=== PATIENT | female | born 1970 | race Caucasian/White ===

== ENCOUNTER → 2018-01-12 15:18 | Outpatient (CLI) | payer OTHER, SELFPAY ==
--- NOTE | 2018-01-12 | DI.MG.S_ITS ---
BILATERAL DIGITAL SCREENING MAMMOGRAM 3D/2D WITH CAD: 01/12/2018 CLINICAL: Routine screening. Family history of breast cancer. Comparison is made to exams dated: 02/18/2016 mammogram, 12/17/2013 mammogram - [facility], and 04/06/2011 mammogram - [facility]. The tissue of both breasts is heterogeneously dense. This may lower the sensitivity of mammography. Current study was also evaluated with a Computer Aided Detection (CAD) system. There is irregular equal density architectural distortion with an indistinct margin in the left breast at 11 o'clock anterior depth. No other significant masses, calcifications, or other findings are seen in either breast. IMPRESSION: INCOMPLETE: NEEDS ADDITIONAL IMAGING EVALUATION The irregular equal density architectural distortion in the left breast is indeterminate. Mediolateral and spot compression views as well as additional views with possible ultrasound are recommended. This exam was interpreted at Station ID: [id number]. NOTE: For mammograms, a report in lay terms will be sent to the patient. Approximately 15% of breast malignancies will not be visualized mammographically. In the management of a palpable breast mass, a negative mammogram must not discourage biopsy of a clinically suspicious lesion. Electronically Signed By: Jose riddle/alina:01/12/2018 16:39:21 letter sent: Additional Imaging Needed ACR BI-RADS Category 0: Incomplete [id number]
== END ==
PROVIDERS: PCP Nurse Practitioner Family; Visit Provider Nurse Practitioner Family
DX: Z12.31 Encounter for screening mammogram for malignant neoplasm of breast (principal); Z80.3 Family history of malignant neoplasm of breast
CPT/HCPCS: 77063; 77067

== ENCOUNTER → 2018-01-25 14:36 | Outpatient (CLI) | payer OTHER, SELFPAY ==
--- NOTE | 2018-01-25 | DI.US.S_ITS ---
ULTRASOUND OF LEFT BREAST: 01/25/2018 CLINICAL: Patient returns for additional imaging over a suspected mass in the left breast. Comparison is made to exams dated: 01/25/2018 mammogram, 01/12/2018 mammogram, and 02/18/2016 mammogram - [facility]. Color flow ultrasound of the left breast was performed. Ibarra scale images of the real-time examination were reviewed. There is a 0.6 cm x 0.4 cm x 0.4 cm irregular mass with an angular margin in the left breast at 10 o'clock anterior depth 3 cm from the nipple. This irregular mass is hypoechoic. IMPRESSION: SUSPICIOUS OF MALIGNANCY - FOLLOW-UP RECOMMENDED The 0.6 cm x 0.4 cm x 0.4 cm irregular mass in the left breast is suspicious of malignancy. An ultrasound guided biopsy is recommended. It is unclear if this finding correlates with the distortion seen mammographically. Recommend post biopsy mammography with tomosynthesis. If finding is discordant a breast MRI or biopsy under tomographic guidance will be needed. Findings and recommendations discussed with the patient by Dr. Michel of the department of radiology at the time of evaluation. This exam was interpreted at Station ID: [id number]. Electronically Signed By: Wiliam Parkinson M.D. cj/:01/25/2018 18:01:51 letter sent: Biopsy Required Ultrasound BI-RADS: 4 Suspicious abnormality
--- NOTE | 2018-01-25 | DI.MG.S_ITS ---
UNILATERAL LEFT DIGITAL DIAGNOSTIC MAMMOGRAM 3D/2D WITH ADDITIONAL VIEWS: 01/25/2018 CLINICAL: Additional evaluation requested from prior study. Family history of breast cancer. Comparison is made to exams dated: 01/12/2018 mammogram, 02/18/2016 mammogram, and 12/17/2013 mammogram - [facility]. The tissue of the left breast is heterogeneously dense. This may lower the sensitivity of mammography. There is 7 mm architectural distortion in the left breast at 10 o'clock anterior depth. No other significant masses or calcifications are seen in the breast. IMPRESSION: INCOMPLETE: NEEDS ADDITIONAL IMAGING EVALUATION The 7 mm architectural distortion in the left breast is indeterminate. An ultrasound is recommended. This exam was interpreted at Station ID: [id number]. NOTE: For mammograms, a report in lay terms will be sent to the patient. Approximately 15% of breast malignancies will not be visualized mammographically. In the management of a palpable breast mass, a negative mammogram must not discourage biopsy of a clinically suspicious lesion. Electronically Signed By: Wiliam shaffer/alina:01/25/2018 17:59:16 ACR BI-RADS Category 0: Incomplete [id number]
== END ==
PROVIDERS: PCP Nurse Practitioner Family; Visit Provider Nurse Practitioner Family
DX: R92.8 Other abnormal and inconclusive findings on diagnostic imaging of breast (principal)
CPT/HCPCS: 76642; 77065; G0279

== ENCOUNTER → 2018-02-13 13:36 | Outpatient (CLI) | payer OTHER, SELFPAY ==
--- NOTE | 2018-02-13 | DI.MG.S_ITS ---
UNILATERAL LEFT DIGITAL DIAGNOSTIC MAMMOGRAM POST-NEEDLE BIOPSY: 02/13/2018 CLINICAL: Left breast mass. Post clip placement. Comparison is made to exams dated: 01/25/2018 ultrasound, 01/12/2018 mammogram, 02/18/2016 mammogram, and 12/17/2013 mammogram - [facility]. The tissue of the left breast is heterogeneously dense. This may lower the sensitivity of mammography. There is a marker clip in the appropriate position in the left breast inner aspect anterior depth. This marker clip placement is at biopsy site. This clip is approximately 1 cm inferior and medial to the mass with architectual distortion seen on comparison diagnostic mammography. IMPRESSION: POST PROCEDURE MAMMOGRAM FOR MARKER PLACEMENT Marker clip placement in the left breast inner aspect anterior depth. The biopsy clip is at the biopsy site but offset by 1 cm from the mass with architectual distortion seen on comparison diagnostic mammogram of 01/25/2018. As such, the ultrasound finding may be discordant from the mammogram finding at diagnostic imaging. Further determination of diagnostic work-up is pending biopsy results, and may include breast MRI. These results and recommendations were discussed with the patient immediately following the biopsy and post-clip images. This exam was interpreted at Station ID: [id number]. NOTE: For mammograms, a report in lay terms will be sent to the patient. Approximately 15% of breast malignancies will not be visualized mammographically. In the management of a palpable breast mass, a negative mammogram must not discourage biopsy of a clinically suspicious lesion. Electronically Signed By: Arnie Trujillo M.D. ecl/:02/13/2018 16:44:48 ACR BI-RADS Category Post-procedure mammogram for marker placement
--- NOTE | 2018-02-13 | PATH_ITS ---
[facility] Accession Number: [id number] . 01 Material submitted: . LEFT BREAST MASS . 01 Clinical history: . A: 9 O'CLOCK 3CM FROM NIPPLE . 02 Diagnosis: Breast Mass at 9 o'clock, 3 cm from Nipple, Left, Vacuum-Assisted Core Biopsy: Benign fibroepithelial tissue. Consistent with fibroadenoma with myxoid stromal change, in the appropriate clinical and imaging setting. . MRV/02/15/2018 . 02 Comment: There is no histologic evidence of stromal overgrowth, increased stromal mitoses, or increased stromal cellularity. . Slides were reviewed by Dr. Eris Urbano, who concurs with this interpretation. . 02 Electronically signed: . Mónica Puga MD, Pathologist NPI- [id number] . 01 Gross description: . Received in formalin, labeled breast perc w vac device, are multiple fragments of celis-yellow and delgadillo-white fibrous adipose tissue (2.5 x 2.1 x 0.2 cm in aggregate). Entirely submitted in cassette A1. Note: Approximate total fixation time in formalin: 33 hours 30 minutes calculated using a collection date of 02/13/2018 with a time in fixative of 1450. ([id number] 1466) /MRV . 02 Pathologist provided ICD-10: N63.20 . 02 CPT . 993187 Performed at: 01 [facility] [address] [facility], [place], [place] [id number] MD Jose Márquez MD Phone: [phone] Performed at: 02 [facility] [address] [place], [place] [id number] MD Unruly Romero MD Phone: [phone]
--- NOTE | 2018-02-13 | DI.US.S_ITS ---
ULTRASOUND GUIDED BIOPSY LEFT BREAST USING VACUUM DEVICE WITH MARKING DEVICE INSERTED AND POST DIGITAL MAMMOGRAPHIC IMAGIN02/13/2018 CLINICAL: Left breast mass. PATIENT CONSENT: Risks (minor bleeding, infection, vasovagal reaction and repeat procedure), benefits and alternatives were explained to the patient and written informed consent was obtained. Correlation is made to exams dated: 01/25/2018 ultrasound, 01/25/2018 mammogram, and 01/12/2018 mammogram - [facility]. An ultrasound guided biopsy using real-time ultrasound was performed for the concerning mass located in the medial left breast described on comparison ultrasound exam of 01/25/2018. This was described on the previous mammography and ultrasound reports. The skin was prepped in the usual manner. 5 mL of 1% lidocaine and 5 mL of 1% lidocaine with epinephrine was used for local anesthesia. A skin jennifer was made in the breast. The abnormality was approached from the lateral aspect. A 13 gauge biopsy needle was placed adjacent to the abnormality through an introducer device under ultrasound guidance. Once the needle was documented to be in the correct location, five specimens were obtained using the Mammotome biopsy system. A clip was inserted into the biopsy cavity. A skin adhesive was applied to the access site. Post procedure digital mammographic imaging was obtained and demonstrates the biopsy clip at the biopsy site but offset from the mass with architectual distortion seen on comparison diagnostic mammogram of 01/25/2018. The specimens were sent to the laboratory for pathological analysis. IMPRESSION: ULTRASOUND GUIDED BIOPSY BENIGN Ultrasound guided biopsy of the mass in the left breast at 8 o'clock anterior depth 3 cm from the nipple was successful with no apparent post procedure complications. However, post procedure digital mammographic imaging was obtained and demonstrates the biopsy clip at the biopsy site but offset from the mass with architectual distortion seen on comparison diagnostic mammogram of 01/25/2018. As such, the ultrasound finding may be discordant from the mammogram finding at diagnostic imaging. Further determination of diagnostic work-up is pending biopsy results, and may include breast MRI. These results and recommendations were discussed with the patient immediately following the biopsy and post-clip images. Pathology results demonstrate a fibroadenoma which is discordant with the imaging findings. Recommend surgical excision or bilateral breast MRI with and without contrast. Recommendations discussed via telephone with Dr. Parish ([phone]) at 13:30 on 02/20/2018. This exam was interpreted at Station ID: [id number]. Arnie Parkinson M.D. ecl,cj/:02/20/2018 14:16:58
--- NOTE | 2018-04-03 15:28 | PM.HP.1 ---
History of Present Illness Date Patient Seen: 04/03/18 Time Patient Seen: 15:28 Chief complaint: LEFT BREAST MASS Narrative: Jana 48-year-old lady who presents for screening colonoscopy. She denies any problems or symptoms related to the function of her GI tract. She requires a colonoscopy as part of a health maintenance program. Patient History Medical History Breast mass, left (Acute) PCOS (polycystic ovarian syndrome) (Chronic) Surgical History H/O left breast biopsy (Acute) History of dermoid cyst excision (Resolved) Hx of removal of ovary (Resolved) Family & Social History Family History: Reviewed 04/03/18 by Natalia Head MD Meds Home Medications Medication Instructions Recorded Confirmed Type bupropion HBr 150 mg PO DAILY 03/05/18 03/21/18 History buspirone 150 mg PO DAILY 03/05/18 03/21/18 History metformin 850 mg PO DAILY 03/05/18 03/21/18 History spironolactone 100 mg PO DAILY 03/05/18 03/21/18 History ondansetron 4 mg PO QID PRN #20 tab MDD 4 03/21/18 Rx oxycodone-acetaminophen [Endocet] 1 tab PO Q4-6H PRN #20 tab MDD 6 03/21/18 Rx Allergies Allergy/AdvReac Type Severity Reaction Status Date / Time morphine [MORPHINE] Allergy Intermediate itching Verified 03/21/18 07:46 Review of Systems Review of Systems All systems reviewed & are unremarkable except as noted in HPI and below Exam Vital Signs (past 8 hours): Very pleasant well-nourished well-developed lady in no distress Narrative Exam Narrative: HEENT: Normocephalic and atraumatic, pupils equal round reactive to light accommodation with anicteric sclera Lungs: Clear to auscultation bilaterally Heart: Regular rate and rhythm without murmur rub or gallop Abdomen: Soft, nontender, active bowel sounds Extremities: Warm and well perfused Assessment & Plan Plan: Assessment/Plan Narrative: Very pleasant and generally healthy 48-year-old lady who presents for her 1st screening colonoscopy. We discussed risks and benefits of procedure the patient elected to complete it today
--- NOTE | 2018-04-03 16:02 | PM.OP.1 ---
Operative Date/Time/Diagnoses Date of procedure: 04/03/18 Time of procedure: 16:02 Pre-op diagnosis: Screening Post-op diagnosis: same Procedure & Clinicians Procedure: Colonoscopy to the cecum Same procedure as scheduled: Yes Indications: No prior colonoscopy Surgeon: Natalia Head Click Yes if Unassisted: Yes Anesthesia Type: Sedation (Versed 9 mg; fentanyl 250 mcg) Operative Notes Findings: 1. Moderately poor prep 2. No polyps or mass lesions 3. No AV malformations 4. Mild diverticulosis 5. Mild colon tortuosity 6. Grade 1-2 internal hemorrhoids Blood products transfused: none Procedure in detail: After obtaining informed consent, the patient was brought to the GI suite and placed in the left lateral decubitus position on the examination table. After placement of appropriate monitors, the patient was given incremental doses of Versed and Fentanyl until an appropriate level of sedation was achieved. A time out was held per SCOAP protocol. A digital rectal examination was performed and did not reveal any masses or obstructing lesions. The colonoscope was gently passed into the patient's anus and the entire colon navigated to the level of the cecum with moderate difficulty due to colon tortuosity. Once in the cecum, the scope was withdrawn being sure to go before and beyond all mucosal folds and prominences and get an excellent examination. The findings are noted above. At the level of the rectal vault, the scope was retroflexed and the internal anal canal was examined. The scope was straightened and air aspirated from the colon. The instrument was removed from the patient's body and the procedure was concluded. The patient was allowed to awaken from sedation without difficulty and taken to the post-anesthesia care unit in good condition. Total sedation time 35 min Total withdrawal time 16 min and 20 sec Complications: none Condition: stable Disposition: PACU Plan for aftercare: 1. Discharge to home 2. Plan for next colonoscopy in 10 years or as clinically indicated
== END ==
PROVIDERS: PCP Nurse Practitioner Family; Visit Provider Nurse Practitioner Family
DX: N63.20 Unspecified lump in the left breast, unspecified quadrant (principal)
CPT/HCPCS: 19083; 77065

== ENCOUNTER 2018-03-21 07:00 | Day surgery (SDC) | payer OTHER, SELFPAY ==
[2018-03-07 16:53] VITALS: BMI 27.6
--- NOTE | 2018-03-21 | DI.MG.S_ITS ---
SPECIMEN: 03/21/2018 CLINICAL: Breast specimen left. Correlation is made to exams dated: 03/21/2018 localization and 02/13/2018 ultrasound [facility]. IMPRESSION: SPECIMEN Surgical specimen contains the localization wire and targeted distortion. Findings relayed to Dr. Head in the surgical suite at the time of specimen radiography via telephone ([phone]). This exam was interpreted at Station ID: [id number]. Wiliam Parkinson M.D. cj/:03/21/2018 11:20:54
--- NOTE | 2018-03-21 | DI.MG.S_ITS ---
MAMMOGRAPHY GUIDED WIRE LOCALIZATION LEFT BREAST WITH POST MAMMOGRAPHIC IMAGIN03/21/2018 CLINICAL: Left breast wire localization. Correlation is made to exams dated: 02/13/2018 mammogram, 01/25/2018 mammogram, and 01/12/2018 mammogram - [facility]. A wire localization using mammography guidance was performed for the area of architectural distortion located in the left breast at 11 o'clock anterior depth. The skin was prepped in the usual manner. Local anesthetic was administered to the access site. The localization was approached from the craniocaudal aspect. A wire was inserted into the targeted area under mammography guidance. Post placement mammographic imaging was obtained. IMPRESSION: WIRE LOCALIZATION Wire localization for the area of architectural distortion in the left breast at 11 o'clock anterior depth was successful. This exam was interpreted at Station ID: [id number]. Wiliam shaffer/alina:03/21/2018 09:10:13
--- NOTE | 2018-03-21 | PATH_ITS ---
[facility] Accession Number: [id number] . 01 Material submitted: . LEFT BREAST TISSUE . 02 Diagnosis: . Left Breast Tissue: Invasive carcinoma of the breast (see breast cancer summary below). . CAP CANCER CASE SUMMARY Invasive carcinoma of the breast: . Procedure: Local excision. Specimen Laterality: Left. . Tumor site: Not specified. Tumor size: Largest are of invasion measured at 0.8 cm (see microscopic description). Histologic type: Invasive ductal carcinoma. Histologic grade: Lor histologic score 6 of 9. Glandular/Tubular differentiation: Score 2 of 3. Nuclear Pleomorphism: Score 3 of 3. Mitotic Rate: Score 1 of 3. Overall Grade: Grade 2 of 3 (score 6 of 9). Tumor focality: Multiple areas of invasive malignancy (see microscopic description. Ductal carcinoma in situ: Present, and positive for extensive intraductal carcinoma. Size (Extent) of DCIS: Measured at 1.2 cm. Architectural patterns: Solid and papillary. Nuclear grade: Grade High. Necrosis: Positive in DCIS. . Margins Invasive carcinoma: Anterior: 0.3 cm. Posterior: 1.5 cm. Superior: 4.9 cm. Inferior: 2.7 cm. Medial: 0.2 cm. Lateral: 2.3 cm. Ductal carcinoma in situ: Anterior: Focally positive. Posterior: 1.5 cm. Superior: 4.9 cm. Inferior: 2.7 cm. Medial: 0.2 cm. Lateral: 2.3 cm. . Regional lymph nodes: None submitted. . Lymphatic/vasular invasion: Negative . Hormone Receptor Studies: Not performed on this specimen (presumably performed on previous biopsy). . Pathologic staging: AJCC, 8th ed. Primary tumor: pT1b (see microscopic description). Regional lymph nodes: pNX MRV/03/27/2018 . 02 Electronically signed: . Ino Urbano MD, Pathologist NPI- [id number] . 01 Gross description: . Received in formalin, labeled left breast tissue, is a piece of breast tissue (2.6 cm AP, 7.9 cm SI, 7.0 cm ML) with no overlying skin. The specimen is oriented with two black sutures (long-lateral, short-anterior) and the localization wire is superior. The specimen is serially sectioned SI into 21 slices with the superior and inferior resection margins as slices #1 and #21, respectively. The localization wire ends within slice #14. The breast tissue is fibrofatty and contains a cavity involving slices #2-#17 (approximately 6.0 x 4.5 x 2.2 cm). 0.5 cm from the cavity within slice #14 is a delgadillo-white solid firm irregular mass (1.0 x 0.9 x 0.3 cm). The mass is 0.3 cm from the anterior, 1.5 cm from the posterior, 4.9 cm from the superior, 2.7 cm from the inferior, 2.2 cm from the medial, and 2.3 cm from the lateral resection margins. No other nodules, masses or lesions are identified. Ink code: purple-anterior; yellow-posterior; black-superior; orange-inferior; green-medial; blue-lateral. Section code: (A1) superior resection margin, perpendicularly sectioned, claim service representative; (A2) slice #3, claim service representative; (A3) slice #4, claim service representative; (A4) slice #6, claim service representative; (A5) slice #7, claim service representative; (A6) slice #11, claim service representative; (A7) slice #12, claim service representative; (A8) slice #13, tissue adjacent to mass, claim service representative; (A9-A12) slice #14, entirely submitted; (A13-A14) slice #15, tissue adjacent to mass, claim service representative; (A15) slice #16, entirely submitted; (A16) inferior resection margin, perpendicularly sectioned, claim service representative. Note: Approximate total fixation time in formalin - 59 hours 30 minutes, calculated using a collection date of 03/21/2018 with no collection time given. (JM:cmc10 8870) /MRV . 02 Microscopic: . Sections are of breast. There is an infiltrating carcinoma present which consists of an admixture of extensive ductal carcinoma in situ associated with multiple areas of invasive malignancy. On histologic examination, there is more tumor present present within this biopsy than was grossly appreciated. Grossly, the tumor appeared to be present in slice 14; however, it actually is present in the sections from slices 6-15, which equates to an area up to 2.2 cm in maximum dimension. For the purpose of pathologic staging, however, one measures the largest single area of invasion as seen on the slide and in this case would be 0.8 cm. The largest single area of duct carcinoma in situ as measured on the slide is 1.2 cm. The nuclear grade of the invasive ductal carcinoma is high with a score of 3 out of 3. Mitotic rate is less than 3 per millimeter squared and with a score of 1 of 3. Tubular differentiation is clearly present, but is greater than 10% of the tumor but less than 75%, which gives a score of 2 of 3. This is an overall tumor grade score of 6 of 9, which equates to a [place] tumor grade 2 of 3. The duct carcinoma in situ is of high nuclear grade and has a papillary and solid pattern with multiple areas of necrosis. . In evaluating the margins of excision, there is a focus of duct carcinoma in situ which touches the inked anterior margin. All of the other margins are free of tumor; however, invasive malignancy is found to be 0.2 cm from the inked medial margin. There is no evidence of lymphatic channel invasion or vascular invasion. . 02 Pathologist provided ICD-10: C50.912 . 02 CPT . 437101 Performed at: 01 [facility] [address] [place] [address], [place], [place] [id number] MD Jose Márquez MD Phone: [phone] Performed at: 02 [facility] [address] [place], [place] [id number] MD Unruly Romero MD Phone: [phone]
[2018-03-21 07:40] VITALS: BP 108/57; PULSE 61; RESP 14; TEMP 36.6; O2SAT 96; BMI 27.6
--- NOTE | 2018-03-21 09:05 | SUR.PREOP ---
pt back to opd from radiology, spouse at side , no' co's at 0900
[2018-03-21] MEDS: LACTATED RINGERS 1,000 ML 42 ML IV (09:08)
--- NOTE | 2018-03-21 10:09 | SUR.OPER ---
Supine on padded OR bed, head on pillow, arms secured on padded arm boards at <90 degrees abduction, legs uncrossed, safety belt at thigh, tape over blanket over lower legs.
[2018-03-21] MEDS: CEFAZOLIN 2 GM/100 ML FROZ.PIGGY IV (10:33)
[2018-03-21] MEDS: LIDOCAINE 1% W/EPI INJ 20 ML INJ (10:44)
[2018-03-21] MEDS: BUPIVACAINE 0.5% (PF) VIAL 30 ML INJ (10:46)
--- NOTE | 2018-03-21 11:20 | PM.OP.1 ---
Operative Date/Time/Diagnoses Date of procedure: 03/21/18 Time of procedure: 11:20 Pre-op diagnosis: Left breast mass Post-op diagnosis: same Procedure & Clinicians Procedure: Left Breast Mass Same procedure as scheduled: Yes Indications: Suspicious left breast mass in the setting of a strong family history of breast cancer Surgeon: Natalia Head Click Yes if Unassisted: Yes Anesthesia Type: General (Dr. Craig) and Local Operative Notes Findings: Target mass and wire contained within the specimen Closure Type: primary Specimen(s): other (Specimen in formalin to pathology following x-ray) Implants & Drains: Cavity marked with hemoclips Procedure in detail: After obtaining informed consent, the patient was brought to the operating room and placed in the supine position on the operating table. Following successful induction of general endotracheal anesthesia, appropriate padding of all bony prominences, and placement of appropriate monitors, the left breast and axilla were prepped and draped in a standard surgical fashion. A timeout was held per SCOAP protocol. We continued with lumpectomy on the left side. A curvilinear incision was created on the left side at the superior edge of the nipple-areolar complex.. Using traction and counter-traction, the mass and localizing wire carefully dissected free from the overlying skin, underlying muscle, and surrounding breast tissue. The mass was delivered into the field and marked appropriately. It was sent for specimen x-ray. The wound was checked for hemostasis and irrigated with water. The cavity was marked with hemoclips. The radiologist called back into the room noting that the specimen x-ray contained the wire and mass. The wound was checked once again for hemostasis. It was irrigated copiously with warm water and aspirated free of all fluid. A small piece of Surgicel was placed in the breast cavity up into the chest wall. The wound was checked once again for hemostasis and then closed in 2 layers with Vicryl Monocryl suture. Dermabond was applied to the skin incisions. Fluffs and a breast binder were applied. The patient tolerated the procedure very well. She was allowed awaken from anesthesia and taken to the post-anesthesia care unit in good condition. Complications: none Condition: stable Disposition: PACU Plan for aftercare: 1. Discharge to home 2. Follow up with me in 2 weeks
[2018-03-21 11:25] VITALS: BP 112/69; PULSE 79; RESP 14; TEMP 36.5; O2SAT 96
[2018-03-21 11:30] VITALS: BP 105/65; PULSE 77; RESP 15; TEMP 36.5; O2SAT 93
[2018-03-21 11:40] VITALS: BP 111/63; PULSE 74; RESP 22; TEMP 36.1; O2SAT 98
[2018-03-21 11:50] VITALS: BP 97/56; PULSE 80; RESP 14; TEMP 36.1; O2SAT 97
[2018-03-21] MEDS: OXYCODONE/ACETAMINOPHEN 5/325 TABLET 1 TAB PO (11:55)
[2018-03-21 12:23] VITALS: BP 108/57; PULSE 61; RESP 14; TEMP 36.6; O2SAT 96
== END 2018-03-21 12:30 | disposition home or self-care (01) ==
PROVIDERS: PCP Nurse Practitioner Family; Visit Provider Surgery
PROC: (CPT 19301; principal; 2018-03-21 13:00)
DX: C50.912 Malignant neoplasm of unspecified site of left female breast (principal); Z80.3 Family history of malignant neoplasm of breast; F41.9 Anxiety disorder, unspecified
CPT/HCPCS: 19301; 19281; 76098; G0279; J0690; J1100; J2250; J2405; J2704; J2765; J3010

== ENCOUNTER 2018-04-18 09:47 | Day surgery (SDC) | payer OTHER, SELFPAY ==
[2018-04-11 14:39] VITALS: BMI 27.6
[2018-04-18] VITALS (23 sets, daily range): BP systolic 103–135; BP diastolic 45–96; PULSE 63–89; RESP 10–17; TEMP 35.9–36.9; O2SAT 87–100; BMI 27.6
--- NOTE | 2018-04-18 | PATH_ITS ---
[facility] Accession Number: [id number] . 01 Material submitted: . PART A: RIGHT BREAST PART B: LEFT AXILLARY SENTINEL NODE PART C: LEFT BREAST . 02 Diagnosis: A. Right Breast, Mastectomy: Benign breast tissue with scattered fibrocystic changes including microcysts, apocrine metaplasia and fibrosis. No evidence of atypical hyperplasia, in situ or invasive carcinoma. . B. Left Axillary Odonnell Node, Excision: One sentinel lymph node negative for metastatic carcinoma. Please see comment. . C. Left Breast, Mastectomy: Reactive changes consistent with prior excision. Fibrocystic changes. No residual in situ or invasive carcinoma. [facility]/04/24/2018 . 02 Comment: B. The minimum pathologic stage classification for regional lymph nodes is pN0(sn). . 02 Electronically signed: . Kimmy Braxton MD, Pathologist NPI- [id number] . 01 Gross description: . (A) Received in formalin, labeled right breast-sutures long lateral, short superior, is a right breast (4.8 cm AP, 21.7 cm SI, 20.8 cm ML) with overlying skin (4.6 cm SI, 10.7 cm ML) containing the nipple areolar complex (4.5 x 3.7 cm). The specimen is oriented with two black sutures (short-superior, long-lateral). No localization wire is present. The breast tissue is fibrofatty with no nodules, masses or lesions identified. Ink code: purple-anterior; yellow-posterior; black-superior; orange-inferior; green-medial; blue-lateral. Section code: (A1) nipple; (A2) skin; (A3, A4) upper outer quadrant; (A5, A6) lower outer quadrant; (A7, A8) upper inner quadrant; (A9, A10) lower inner quadrant. (B) Received in formalin, labeled left axillary sentinel node, is a lymph node (1.5 x 1.0 x 0.5 cm). Serially sectioned and entirely submitted in cassette B1. C) Received in formalin, labeled left breast, sutures-long lateral, short superior, is a left breast (10.1 cm AP, 19.4 cm SI, 20.5 cm ML) with overlying skin (4.9 cm SI, 10.1 cm ML) containing the nipple areolar complex (5.5 x 4.6 cm). The specimen is oriented with two black sutures (short-superior, long-lateral). No localization wire is present. The specimen is serially sectioned ML into 41 slices with the medial and lateral resection margins as slices #1 and #41, respectively. An empty fibrous cavity (8.5 x 6.5 x 6.3 cm) involving slice s 13-25, is perforating through the anterior upper inner quadrant 2.6 cm from the nipple. The cavity is 2.5 cm deep to the nipple and is 0.8 cm from the posterior, 5.5 cm from the superior, 3.5 cm from the inferior, 5.5 cm from the medial, and 8.5 cm from the lateral resectin margins. The tissue adjacent to the cavity is densely fibrous. The remaining breast tissue is fatty. No nodules, masses or lesions are identified. The skin and nipple areolar complex are celis-white and unremarkable. Ink code: orange-anterior; yellow-posterior; black-superior; purple-inferior; green-medial; blue-lateral. Section code: (C1) nipple; (C2) skin; (C3) medial resection margin, perpendicularly sectioned, financial services representative; (C4) slice #12, financial services representative; (C5) slice #13, financial services representative; (C6) slice #14, financial services representative; (C7) slice #15, financial services representative; (C8) slice #16, financial services representative; (C9) slice #17; (C10) slice #18, financial services representative; (C11) slice #19, financial services representative; (C12) slice #20, financial services representative; (C13) slice #21, financial services representative; (C14) slice #22, financial services representative; (C15) slice #23, financial services representative; (C16) slice #24, financial services representative; (C17) slice #25, financial services representative; (C18) slice #26, financial services representative; (C19) slice #27, financial services representative; (C20) lateral resection margin, perpendicularly sectioned, financial services representative. (C21) upper inner quadrant; (C22) lower inner quadrant; (C23) lower outer quadrant; (C24) upper inner quadrant; (C25) dense fibrous tissue anterior, inferior from biopsy cavity. Note: This specimen has been reviewed by Dr. Alfredito Soriano. . Note: Approximate total fixation time in formalin for all specimens-68 hours calculated using a collection date of 04/18/2018, with no collection time given. (JM:cmc80 [id number]) (JL:cmc10 16991) /[facility] . 02 Microscopic: . B. Immunohistochemical stain was performed to evaluate for cells of interest. The control stain showed appropriate reactivity. . RESULTS: Cytokeratin MELINDA: Negative. . INTERPRETATION: No evidence of metastatic carcinoma by immunohistochemistry. . * This test was developed and its performance characteristics determined by [facility]. It has not been cleared or approved by the U.S. Food and Drug Administration. The FDA has determined that such clearance or approval is not necessary. This test is used for clinical purposes. It should not be regarded as investigational or for research. . 02 Pathologist provided ICD-10: C50.912 . 02 CPT . 460705, 555306, 677384, N14986 Specimen Comment: A duplicate report has been generated due to demographic updates. Performed at: 01 [facility] [address] [place] [address], [place], [place] [id number] MD Jose Márquez MD Phone: [phone] Performed at: 02 [facility] [id number] [place] [id number] MD Unruly Romero MD Phone: [phone]
--- NOTE | 2018-04-18 10:02 | DI.NM.S_ITS ---
PROCEDURE: NM SENTINEL NODE W IMAGING RADIOPHARMACEUTICAL: 0.5-1.0 mCi Millipore filtered Tc-99m sulfur colloid. INDICATIONS: Left breast cancer. TECHNIQUE: The area around the nipple was prepped and draped in a sterile fashion. Tc-99m sulfur colloid was injected intra-dermally in the outer edge of the areola in the left breast. Images were obtained subsequently. A body contour outline was obtained. FINDINGS: There is a cluster of lymph node(s) in the ipsilateral axilla. IMPRESSION: Administration of radiotracer into the left breast periareolar region for intra-operative sentinel lymph node localization. A cluster of lymph node(s) is present in the ipsilateral axilla. Dictated by: Laine Roman M.D. on 04/18/2018 at 14:21 Approved by: Laine Roman M.D. on 04/18/2018 at 14:38
[2018-04-18] MEDS: LACTATED RINGERS 1,000 ML 42 ML IV ×2 (10:56→13:58)
[2018-04-18] MEDS: CEFAZOLIN 2 GM/100 ML FROZ.PIGGY IV (11:25)
--- NOTE | 2018-04-18 11:26 | PM.PREOP ---
Pre-operative Note Interval Note Pre-op Check: Yes History & Physical Reviewed by Physician Changes: No
--- NOTE | 2018-04-18 11:40 | SUR.OPER ---
Supine on padded OR bed, head on pillow, arms secured on padded arm boards at <90 degrees abduction, legs uncrossed, safety belt at thigh, tape over blanket over lower legs.
[2018-04-18] MEDS: LIDOCAINE 1% W/EPI INJ 20 ML INJ (11:56)
[2018-04-18] MEDS: BUPIVACAINE 0.5% MDV 20 ML INJ (11:58)
--- NOTE | 2018-04-18 14:18 | PM.OP.1 ---
Operative Date/Time/Diagnoses Date of procedure: 04/18/18 Time of procedure: 14:19 Pre-op diagnosis: Biopsy-proven left breast cancer in the setting of a strong family history of breast malignancy Post-op diagnosis: same Procedure & Clinicians Procedure: Bilateral skin sparing mastectomy and left sentinel node biopsy after mapping Same procedure as scheduled: Yes Surgeon: Natalia Head Click Yes if Unassisted: Yes Anesthesia Type: General (Dr. Craig) Operative Notes Findings: 1. A single sentinel node at level 2-3 of the left axilla with a 10 sec count of 11,113 2. Background in the room of 0 3. Background in the axilla of 12 4. Well-developed and healing seroma pocket in the left anterior breast. No evidence of infection or purulence Closure Type: primary Implants & Drains: Two hundred nineteen Citizen [place] Stefan drains. One in each inferior mastectomy pocket Estimated Blood Loss (mL): 200 Procedure in detail: After obtaining informed consent, the patient was brought to the operating room and placed in supine position on the operating table. Following successful induction of IV sedation, bilateral chest, neck, and axilla were prepped and draped in the standard surgical fashion. A timeout was held per SCOAP protocol. We began our procedure on the right side because that is the unaffected side. An elliptical incision was fashioned to include only the nipple areola complex on the right side. Thin tissue flaps were created superiorly, medially, inferiorly, and laterally by using traction and counter-traction to carefully define and then separate the subcutaneous tissue from the breast tissue on the left side. Judicious use of sharp dissection and Bovie cautery developed these planes. Dissection was continued superiorly to a level just inferior to the right clavicle, medially to the sternum, inferiorly to the inframammary fold and laterally to the latissimus. The breast was then removed from the chest wall in a medial to lateral fashion. The wound was then checked for hemostasis and irrigated copiously with warm water. The breast was passed from the table after marking it with a short stitch superior and a long stitch lateral. A 19 Citizen [place] Stefan drain was placed in the inferior pocket and brought out in the inferior medial position. This was sewn into place with a nylon suture. The remaining breast incision was closed in 2 layers with Vicryl and Monocryl sutures. Following injection of a mixture of local anesthetics into the axillary fold on the left side, an incision was created and carried down through the skin and subcutaneous tissue to enter the axillary fat pad below. The neoprobe was used to identify the sentinel node in upper level to or inferior level 3 of the axillary node packet. It had a 10 [place] [address]. The node was carefully liberated from the remainder of the axillary packet, being sure not to compromise any of the other lymphatic structures. All afferent and efferent lymphatics and vasculature were addressed with hemoclips prior to division. The remaining background in the axilla was less than 12. Background in the room was 0. The wound was checked for hemostasis and irrigated with warm water. It was closed in 2 layers with Vicryl and Monocryl suture. An elliptical incision was fashioned to include only the nipple areola complex on the left side. Thin tissue flaps were created superiorly medially inferiorly and laterally by using traction and counter-traction to carefully define and then separate the subcutaneous tissue from the breast tissue on the left side. Judicious use of sharp dissection and Bovie cautery developed these planes. Dissection was continued superiorly to a level just inferior to the left clavicle, medially to the sternum, inferiorly to the inframammary fold, and laterally to the latissimus. The breast was then removed from the chest wall in a medial to lateral fashion. The wound was then checked for hemostasis and irrigated copiously with warm water. The breast was passed from the table after marking it with a short stitch superior and a long stitch lateral. A 19 Citizen [place] Stefan drain was placed in the inferior pocket and brought out in the inferior medial position. This was sewn into place with a nylon suture. The remaining breast incision was closed in 2 layers with Vicryl and Monocryl sutures. Exofen was applied to all incisions. All sponge, needle, and instrument counts were correct at the conclusion of the case. The patient was allowed to awaken from anesthesia without difficulty and taken to the post-anesthesia care unit in good condition. Complications: none Condition: stable Disposition: PACU Plan for aftercare: 1. Admit for 23 hr observation 2. Plan for discharge home in the morning if all goes well overnight.
[2018-04-18] MEDS: ONDANSETRON 4 MG/2 ML INJ IV (14:34)
[2018-04-18] MEDS: fentaNYL 100 MCG/2 ML INJ 50 MCG IV (14:35)
[2018-04-18] MEDS: HYDROMORPHONE 2 MG INJ 0.5 MG IV (15:05)
[2018-04-18] MEDS: METOCLOPRAMIDE 10 MG/2 ML INJ IV (15:23)
[2018-04-18] MEDS: DEXTROSE 5%-0.45% NS 1,000 ML 125 ML IV ×2 (17:41→23:43)
[2018-04-18] MEDS: OXYCODONE/ACETAMINOPHEN 5/325 TABLET 1 TAB PO ×2 (18:16→22:15)
[2018-04-18] MEDS: HYDROMORPHONE 1 MG INJ IV ×2 (19:21→23:42)
[2018-04-18] MEDS: DOCUSATE 100 MG CAPSULE PO (20:41)
--- NOTE | 2018-04-18 21:31 | PC.NURSE ---
1630- Pt arrived to room 216 from PACU via bed. A/O x3, 100% 2L nc, LS clear. BP cuff to right ankle, calf SCD's on bilat. Double mastectomy, well aproximated with suture, telpha drsg, binder in place. Left lymphectomy well aproximated with dermabond, ice packs bilat. Voiding to BRP, current menses, provided with brief and donell pads. SBA to BRP. Right wrist D5 1/2 NS @ 125. Percocet 1 tab and 0.5mg dilaudid IVP for pain management, effective. Giuseppe gone for the night. Provided pt with sandwich, soup, cookie, and hot tea and water. Call light in reach and bed alarm on for safety.
[2018-04-19] MEDS: OXYCODONE/ACETAMINOPHEN 5/325 TABLET 1 TAB PO ×5 (03:21→21:49)
[2018-04-19 03:24] VITALS: BP 134/73; PULSE 61; RESP 17; TEMP 36.5; O2SAT 96
[2018-04-19] MEDS: HYDROMORPHONE 1 MG INJ IV (06:06)
[2018-04-19] MEDS: DEXTROSE 5%-0.45% NS 1,000 ML 125 ML IV (06:17)
[2018-04-19 08:00] VITALS: BP 96/53; PULSE 71; RESP 16; TEMP 36.9; O2SAT 97
[2018-04-19] MEDS: BUSPIRONE 5 MG TABLET 10 MG PO (09:57)
[2018-04-19] MEDS: CELECOXIB 200 MG CAPSULE PO (09:57)
[2018-04-19] MEDS: METFORMIN 850 MG TABLET PO (09:57)
[2018-04-19] MEDS: SPIRONOLACTONE 50 MG TABLET 100 MG PO (09:57)
[2018-04-19] MEDS: buPROPion XL 150 MG TAB PO (09:57)
[2018-04-19] MEDS: DOCUSATE 100 MG CAPSULE PO ×2 (09:57→21:49)
--- NOTE | 2018-04-19 11:56 | CM.IDA ---
DCP Assessment Note: Pt is a 48 yo female, resident of [place]. Pt is SDC, POD#1 for a skin sparing mastectomy and left node biopsy. Pt's PCP is Minh Collins; Insurance is [employer]. Pt is expected to DC today; home w/spouse w/no barriers to safe DC home. Pt is active and indp at baseline and remains so in her rm. SW available to assist in DC planning needs/concerns if they arise or DCP changes. CURT Gonzalez Discharge Planning/Care Management CM Discharge Assessment Start: 04/19/18 11:51 Freq: Status: Active Protocol: Document 04/19/18 11:52 PETRA (Rec: 04/19/18 11:56 PETRA [id number]) Discharge Planning Assessment Assigned Staple Side Laster CURT Bowling DPOA/Assigned Designee Name Giuseppe Mai, spouse Contact Information [phone], cell Advance Directives? No History Provided By Patient Medical Record Has Patient been admitted in last 30 No days? Prior Living Arrangements House Household Members spouse children Type of transporation used prior to Drives own vehicle admit Independent with ADL's Yes Is patient alert and oriented? Yes Barriers to Discharge No Comment No DC needs. Home w/spouse and close outpt f/u Transportation Arrangement Family Referrals Initiated None needed Please Provide Date Initial DC 04/19/18 Assessment Was Performed
[2018-04-19 13:22] VITALS: BP 141/60; PULSE 63; RESP 16; O2SAT 95
[2018-04-19 15:15] VITALS: BP 135/75; PULSE 63; RESP 17; TEMP 36.7; O2SAT 97
--- NOTE | 2018-04-19 16:10 | PM.PN.1 ---
Subjective Date Patient Seen: 04/19/18 Time Patient Seen: 16:10 Interval history: Diane is postop day 1 after bilateral mastectomy and left sentinel node biopsy. She reports that she is feeling okay. She took a walk with her today. She has also had a shower. Her nurse reports that she is a bit weak and after having shower she got a little bit faint. Her drains have been serosanguineous and the combined output is about 200 mL since surgery. Urine output is adequate. Her bowels are working and she has not had any nausea. Exam Vital Signs (past 8 hours): - 04/19/18 13:22 Pulse Rate 63 Respiratory Rate 16 Blood Pressure 141/60 H Pulse Oximetry 95 Oxygen Delivery Method Nasal Cannula Oxygen Flow Rate 0 Narrative Exam Narrative: Lungs are clear bilaterally. Heart is regular rate and rhythm Operative site bilaterally is bruised skin flaps are all viable. No visible hematoma. Some bruising around the left axillary sentinel node site. Extremities: No edema Assessment & Plan Plan: Assessment/Plan Narrative: Postop day 1 after bilateral mastectomy. I am hesitant to send Diane home just yet. She still a bit weak and a bit unsteady on her feet. I would like to decrease her IV fluid and keep her in the hospital 1 more night for observation. She will hopefully be ready for discharge in the morning. She has been learning how to care for her drains and she feels like by tomorrow she will probably be able to take care of those. Quality VTE Deep Vein Thrombosis/Pulmonary Embolism Present on Admission: No
--- NOTE | 2018-04-19 17:52 | PC.NURSE ---
Pt is A&O x3, extremely pleasant and has very high and uplifting spirits today. Patient is POD #1. Incisions to chest are well approximated w/ dermabond and left lymph site removal is well approx. w/ stitches. Ice pack to left armpit for comfort as patient states most of discomfort comes from said site. Incisions covered w/ gauze and pink breast binder in place. 2 BERTHA drains on left and right below breast incisions. Drains at patent and draining well. Pain is being well managed w/ 1 Percocet Q3hr as ordered. Pt reports she no longer wishes to have Dilaudid as she is not keen on how it has started to make her feel during administration. Patient is indep. in room and no concerns w/ safety by nurse. Call light w/in reach, bed in low pos.
[2018-04-19 20:15] VITALS: BP 126/68; PULSE 67; RESP 16; TEMP 36.5; O2SAT 98
[2018-04-19 23:48] VITALS: BP 106/58; PULSE 61; RESP 16; TEMP 36.8; O2SAT 97
[2018-04-20] MEDS: OXYCODONE/ACETAMINOPHEN 5/325 TABLET 1 TAB PO ×4 (02:35→11:54)
[2018-04-20 06:17] VITALS: BP 119/57; PULSE 59; RESP 16; TEMP 36.7; O2SAT 96
[2018-04-20] MEDS: SPIRONOLACTONE 50 MG TABLET 100 MG PO (08:18)
[2018-04-20] MEDS: CELECOXIB 200 MG CAPSULE PO (08:18)
[2018-04-20] MEDS: METFORMIN 850 MG TABLET PO (08:18)
[2018-04-20] MEDS: BUSPIRONE 5 MG TABLET 10 MG PO (08:18)
[2018-04-20] MEDS: DOCUSATE 100 MG CAPSULE PO (08:18)
[2018-04-20] MEDS: buPROPion XL 150 MG TAB PO (08:19)
[2018-04-20 08:55] VITALS: BP 127/77; PULSE 65; RESP 16; TEMP 36.7; O2SAT 96
--- NOTE | 2018-04-20 13:15 | P.DS_ITS ---
History of Present Illness Date Patient Seen: 04/20/18 Time Patient Seen: 11:14 Chief complaint: [id number] Narrative: Patient is woman admitted for surgical treatment of left-sided breast cancer. She opted to have bilateral mastectomies and sentinel node biopsies on the left. Discharge Providers Primary care physician: Minh Collins MD Consults: 04/18/18 16:41 Consult to Discharge Planning Routine Comment: Discharge provider: Rafi Harris MD Summary Discharge Diagnosis: Left-sided breast cancer Type 2 diabetes chronic Polycystic ovary disease chronic Hospital Course: Patient underwent bilateral skin sparing mastectomies and sentinel node biopsy on the left. She was a bit dizzy briefly and was not able to be discharged postoperative day 1 so she was kept overnight is rated go home today. She has some localized slough at the edge of her skin closure on the right and left. There is some violaceous discoloration that is probably because the flaps are thin. Status at Discharge Cognitive/behavioral status at discharge: Normal Functional status at discharge: independent ambulation Overall status at discharge: patient is back to baseline Time Spent with Patient Less than 30 minutes Exam Vital Signs (past 8 hours): - 04/20/18 06:17 04/20/18 08:55 Temperature 98.1 F 98.1 F Pulse Rate 59 L 65 Respiratory Rate 16 16 Blood Pressure 119/57 L 127/77 Pulse Oximetry 96 96 Oxygen Delivery Method Nasal Cannula Oxygen Flow Rate 0 Discharge Plan Discharge Plan Patient Disposition: Home Discharge Med Rec/Prescriptions Prescriptions: Continue spironolactone 100 mg PO DAILY RF: 0 metformin 850 mg PO DAILY RF: 0 buspirone 150 mg PO DAILY RF: 0 bupropion HBr 150 mg PO DAILY RF: 0 ondansetron 4 mg tablet,disintegrating 4 mg PO QID MDD 4 PRN (Reason: nausea and vomiting) Qty: 20 RF: 0 oxycodone-acetaminophen [Endocet] 5-325 mg tablet 1 tab PO Q4-6H MDD 6 PRN (Reason: pain) Qty: 20 RF: 0 Follow up/Referrals: Minh Collins MD [Primary Care Provider] - (please follow up with dr loera ) Rafi Harris MD [Physician] - 04/24/18 4:00 pm Discharge Orders: Discharge (Order); Ordered 04/20/18 Ordered By: Rafi Harris Provider Discharge Instructions Diet: Diet as Tolerated Activity: avoid vigorous use of arms/shoulders. Do exercises demonstrated by doctor a few times a day. Do not drive. no pool or tub Other treatments: empty and record drainage 2-3 times a day. bring list to doctor's appointment. If you need to reach a doctor, call the office and hold until someone picks up, even if the office is closed. Skin/Wound/Dressing Care Report to your healthcare provider any signs of infection, such as:: increased pain and unusual drainage Dressing: may keep dressing /gauze on or off along with binder Other wound treatment: there is loose skin in the area operated upon and some bruising. this is normal. It should subside. Visit Report/Discharge Packet Instructions: DI for Orlin-Ferguson Drains, Oxycodone, DI for Mastectomy with Lymph Node Removal Stand Alone Forms: Surgery Discharge Discharge Data Primary Care Provider: Minh Collins Attending Provider: Natalia Head VTE Deep Vein Thrombosis/Pulmonary Embolism Present on Admission: No
--- NOTE | 2018-04-20 14:13 | PC.NURSE ---
Pt given dc information and script. Verbalized understanding of emptying and recording BERTHA drain contents. Taken by wheelchair to private vehicle.
== END 2018-04-20 14:14 | disposition home or self-care (01) ==
LOC: OR 09:49 → AC 13:46
PROVIDERS: PCP Internal Medicine; Visit Provider Surgery
PROC: 0HTV0ZZ Resection of Bilateral Breast, Open Approach (ICD-10-PCS; CPT 19303; principal; 2018-04-18 10:45)
DX: C50.912 Malignant neoplasm of unspecified site of left female breast (principal); Z40.01 Encounter for prophylactic removal of breast; L76.34 Postprocedural seroma of skin and subcutaneous tissue following other procedure; Z80.3 Family history of malignant neoplasm of breast; F41.9 Anxiety disorder, unspecified; E28.2 Polycystic ovarian syndrome; E11.9 Type 2 diabetes mellitus without complications; Z79.84 Long term (current) use of oral hypoglycemic drugs; R42 Dizziness and giddiness
CPT/HCPCS: 19303; 38525; 78195; 94760; A9541; J0690; J1100; J1170; J2250; J2405; J2704; J2765; J3010

== ENCOUNTER 2018-09-06 11:13 | Day surgery (SDC) | payer BC, SELFPAY ==
[2018-04-18 16:30] VITALS: BMI 27.6
[2018-09-06 11:44] VITALS: BP 106/74; PULSE 67; RESP 16; TEMP 37.1; O2SAT 95; BMI 29.0
[2018-09-06] MEDS: MIDAZOLAM 5 MG/5 ML VIAL IV (12:37)
[2018-09-06] MEDS: fentaNYL 250 MCG/5 ML INJ IV (12:37)
--- NOTE | 2018-09-06 12:46 | PM.PREOP ---
Pre-operative Note Interval Note History & Physical reviewed/Exam performed by Physician: Yes Changes to H&P: No
--- NOTE | 2018-09-06 12:46 | PM.OP.1 ---
Operative Date/Time/Diagnoses Date of procedure: 09/06/18 Time of procedure: 12:46 Pre-op diagnosis: Family history of colon cancer Screening Post-op diagnosis: same Procedure & Clinicians Procedure: Colonoscopy to the cecum Same procedure as scheduled: Yes Indications: No prior colonoscopy Surgeon: Natalia Head Anesthesia Type: Sedation (Versed 8 mg; fentanyl 200 mcg) Operative Notes Findings: 1. Excellent prep 2. No polyps or mass lesions 3. No AV malformations 4. No significant diverticulosis 5. Mildly tortuous sigmoid and transverse colons 6. Grade 1-2 internal and Closure Type: not applicable Procedure in detail: After obtaining informed consent, the patient was brought to the GI suite and placed in the left lateral decubitus position on the examination table. After placement of appropriate monitors, the patient was given incremental doses of Versed and Fentanyl until an appropriate level of sedation was achieved. A time out was held per SCOAP protocol. A digital rectal examination was performed and did not reveal any masses or obstructing lesions. The colonoscope was gently passed into the patient's anus and the entire colon navigated to the level of the cecum with mild difficulty due to colon tortuosity. Once in the cecum, the scope was withdrawn being sure to go before and beyond all mucosal folds and prominences and get an excellent examination. The findings are noted above. At the level of the rectal vault, the scope was retroflexed and the internal anal canal was examined. The scope was straightened and air aspirated from the colon. The instrument was removed from the patient's body and the procedure was concluded. The patient was allowed to awaken from sedation without difficulty and taken to the post-anesthesia care unit in good condition. Total sedation time was 24 min Total withdrawal time was 8 min 54 sec Complications: none Condition: stable Disposition: PACU Plan for aftercare: 1. Discharge to home 2. Plan for next colonoscopy in 5 years due to the patient's family history
[2018-09-06 12:48] VITALS: BP 100/71; PULSE 82; RESP 16; TEMP 36.4; O2SAT 98
[2018-09-06 12:53] VITALS: BP 118/51; PULSE 83; RESP 14; O2SAT 99
[2018-09-06 12:58] VITALS: BP 131/83; PULSE 83; RESP 16; O2SAT 99
[2018-09-06 13:03] VITALS: BP 132/91; PULSE 69; RESP 14; TEMP 36.4; O2SAT 97
== END 2018-09-06 13:23 | disposition home or self-care (01) ==
PROVIDERS: Family Provider Family Medicine; Visit Provider Surgery
PROC: 0DJD8ZZ Inspection of Lower Intestinal Tract, Via Natural or Artificial Opening Endoscopic (ICD-10-PCS; CPT 45378; principal; 2018-09-06 10:45)
DX: Z12.11 Encounter for screening for malignant neoplasm of colon (principal); Z80.0 Family history of malignant neoplasm of digestive organs; C50.912 Malignant neoplasm of unspecified site of left female breast; E28.2 Polycystic ovarian syndrome
CPT/HCPCS: 45378; 99152; 99153; J2250; J3010

== ENCOUNTER → 2020-06-30 14:59 | Outpatient (CLI) | payer OTHER, SELFPAY ==
[2018-11-12 14:38] VITALS: BMI 27.6
[2020-06-30 15:39] LABS: Add Manual Diff / Slide Review NO; Basophils Absolute Auto 0 /uL (0-100); Basophils Percent Auto 0.5 % (0-2); Eosinophils Absolute Auto 200 /uL (0-450); Eosinophils Percent Auto 3.4 % (2-4); Hematocrit 39.4 % (36-46); Hemoglobin 13.4 g/dL (12.0-16.0); Lymphocytes Absolute Auto 1900 /uL (1100-4500); Lymphocytes Percent Auto 26.3 % (25-40); Mean Corpuscular HGB Conc 34.1 % (30-36); Mean Corpuscular Hemoglobin 32.4 PG (26-34); Monocytes Absolute Auto 700 /uL (0-900); Monocytes Percent Auto 9.2 % (3-14); Neutrophils Absolute Auto 4400 /uL (1500-7000); Neutrophils Percent Auto 60.6 % (50-75); Platelet Count 324 X10^3/uL (150-400); Red Blood Cell Count 4.14 X10^6/uL (4.0-5.2); Red Cell Distribution Width 13.1 % (11.6-14.8); White Blood Cell Count 7.2 X10^3/uL (4.5-11.0)
[2020-06-30 16:08] LABS: Alanine Aminotransferase 43 IU/L (<35); Albumin 4.4 g/dL (3.5-5.0); Albumin Globulin Ratio 1.4 (1.0-2.8); Alkaline Phosphatase 93 U/L (38-126); Aspartate Aminotransferase 38 IU/L (14-36); BUN Creatinine Ratio 13.1 (6-22); Bilirubin Total 0.5 mg/dL (0.2-1.3); Blood Urea Nitrogen 8 mg/dL (7-17); Carbon Dioxide 29 mmol/L (22-32); Chloride 102 mmol/L (98-107); Cholesterol 193 mg/dL (140-199); Estimated Glomerular Filt Rate > 60.0 mL/min (>60); Globulin 3.2 g/dL (1.7-4.1); Glucose 100 mg/dL (70-100); HDL Cholesterol 50 mg/dL (40-60); HEMOLYSIS < 15 (0-50); Potassium 3.7 mmol/L (3.4-5.1); Sodium 137 mmol/L (137-145); Total Protein 7.6 g/dL (6.3-8.2)
[2020-06-30 16:38] LABS: Cancer Antigen 125 330 U/mL (0-35)
[2020-06-30 17:04] LABS: COVID19 -Nasal RAPID Negative (Negative)
== END ==
PROVIDERS: Family Provider Family Medicine; PCP Family Medicine; Referring Provider Family Medicine; Visit Provider Family Medicine
DX: Z00.00 Encounter for general adult medical examination without abnormal findings (principal); Z11.59 Encounter for screening for other viral diseases
CPT/HCPCS: 36415; 80053; 82465; 83718; 85025; 86304; 87635

== ENCOUNTER → 2020-07-09 11:51 | Outpatient (CLI) | payer BC, SELFPAY ==
[2018-11-12 14:38] VITALS: BMI 27.6
--- NOTE | 2020-07-09 11:53 | DI.CT.S_ITS ---
PROCEDURE: CT CHEST ABD PEL W CON INDICATIONS: H/o breast cancer, hoarseness, LLQ pain, increased CA 125 TECHNIQUE: After the administration of oral and intravenous contrast, 5 mm thick sections acquired from the lung apices to the symphysis. 5 mm coronal and sagittal reformats were performed, with additional 7 mm coronal MIP reformats through the lungs. For radiation dose reduction, the following was used: automated exposure control, adjustment of mA and/or kV according to patient size. COMPARISON: [facility], US, PELVIC COMPLETE, 02/18/2016, 12:29. [facility], MG, MM SCREENING MAMMO BI, 01/12/2018, 15:40. [facility], US, US BREAST LT LIMITED, 01/25/2018, 15:33. [facility], , MM DIAGNOSTIC MAMMO UNILAT LT2D, 02/13/2018, 15:06. [facility], CT, ABDOMEN/PELVIS WITH CONTRAST, 11/29/2015, 10:26. [facility], CT, CT SOFT TISSUE NECK W CON, 07/09/2020, 12:56. FINDINGS: Image quality: Excellent. CHEST: Lungs and pleura: Mild respiratory motion artifact. There is right basilar atelectasis. No acute airspace opacities. No pleural effusions or pneumothorax. Central and peripheral airways appear patent and normal in caliber. Mediastinum: Heart size is normal. No pericardial effusion. No mediastinal or hilar adenopathy by size criteria. Thoracic aorta and central pulmonary arteries are normal in size. Esophagus is normal in caliber. No hiatal hernia. Chest wall: Bilateral mastectomies. No axillary or supraclavicular adenopathy by size criteria. Thyroid gland is normal . ABDOMEN: Solid organs: Mild hepatic steatosis. Liver is normal in size. There are couple of small indeterminate densities in liver. Gallbladder contains sludge. Biliary system is non dilated. Pancreas enhances normally. Spleen is normal in size and enhancement. No adrenal nodules. Kidneys demonstrate normal size and enhancement, without hydronephrosis. Peritoneum and bowel: Bowel loops demonstrate normal wall thickness and caliber. No free fluid or air. Nodes and vessels: No retroperitoneal or mesenteric adenopathy by size criteria. Aorta and inferior vena cava are normal in size. Miscellaneous: There is a tiny fat containing umbilical hernia. PELVIS: Genitourinary: Bladder wall thickness is normal. There is a complex cystic mass in the left adnexa measuring 5.7 x 6.7 x 7.4 cm. Compared to the last CT on 11/28/2025 seen, it has increased in size. Uterus is normal. Small amount of fluid within the uterine cavity may be secondary to menses. Right ovary is not well seen. Miscellaneous: No inguinal hernias or adenopathy. Bones: No suspicious bony lesions. No vertebral body compression fractures. IMPRESSION: 1. Bilateral mastectomies. No findings to suggest local recurrence or urban metastasis. 2. There is a 5.7 x 6.7 x 7.4 cm complexes mass in the left ovary. Differential diagnosis include benign and malignant ovarian neoplasm. Recommend pelvic ultrasound for further evaluation and gynecological follow-up. 3. A couple of indeterminate subcentimeter hepatic hypodensities are most likely cysts. Dictated by: Laine Roman M.D. on 07/09/2020 at 16:24 Approved by: Laine Roman M.D. on 07/09/2020 at 16:38
--- NOTE | 2020-07-09 11:53 | DI.CT.S_ITS ---
PROCEDURE: CT SOFT TISSUE NECK W CON INDICATIONS: H/o breast cancer, hoarseness, LLQ pain, increased CA 125 TECHNIQUE: After the administration of intravenous contrast, 3.0 mm axial sections acquired from the sella to the aortic arch. Additional oblique axial 3.0 mm sections acquired through the pharynx. 3 mm thick coronal and sagittal reformats were generated. For radiation dose reduction, the following was used: automated exposure control. COMPARISON: None. FINDINGS: Image quality: Excellent. Lymph nodes: No enlarged lymph nodes seen throughout the neck. Vessels: Visualized vasculature appears patent. Neck spaces: The oropharynx, nasopharynx, and pharynx demonstrate no mucosal lesions. The vocal cords, false vocal cords, pyriform sinuses, epiglottis, vallecula, and tongue base all appear normal. Extramucosal spaces appear unremarkable. Glands: The parotid and submandibular glands appear normal. Thyroid gland contains a 1.1 centimeter hypoattenuating nodule in the right lobe.. Miscellaneous: Visualized brain and orbits appear normal. Lung apices appear clear. Superficial soft tissues appear normal. Bones: No suspicious bony lesions. Spine degenerative disc disease and facet arthropathy.Visualized sinuses and mastoids appear unremarkable. IMPRESSION: 1. No evidence of metastatic disease involving the neck. 2. No lymphadenopathy based on size criteria. 3. No mucosal based mass. 4. 1.1 centimeter right thyroid nodule. Recommend thyroid ultrasound for definitive characterization. Dictated by: Shayy Rogers MD, PhD on 07/09/2020 at 15:32 Approved by: Shayy Rogers MD, PhD on 07/09/2020 at 15:38
== END ==
PROVIDERS: Family Provider Family Medicine; PCP Family Medicine; Referring Provider Internal Medicine; Visit Provider Internal Medicine
DX: R10.32 Left lower quadrant pain (principal); Z85.3 Personal history of malignant neoplasm of breast; R97.1 Elevated cancer antigen 125 [CA 125]; N83.9 Noninflammatory disorder of ovary, fallopian tube and broad ligament, unspecified; R49.0 Dysphonia; N04.1 Nephrotic syndrome with focal and segmental glomerular lesions; K76.0 Fatty (change of) liver, not elsewhere classified; K82.8 Other specified diseases of gallbladder; Z90.13 Acquired absence of bilateral breasts and nipples
CPT/HCPCS: 70491; 71260; 74177; Q9967

== ENCOUNTER → 2020-07-15 07:42 | Outpatient (CLI) | payer OTHER, SELFPAY ==
[2018-11-12 14:38] VITALS: BMI 27.6
--- NOTE | 2020-07-15 07:43 | DI.US.S_ITS ---
PROCEDURE: US PELVIC COMPLETE INDICATIONS: left adnexal mass seen on recent CT TECHNIQUE: Real-time scanning was performed of the pelvic organs, with image documentation. Additional endovaginal scanning was necessary due to incomplete visualization of the adnexal and endometrial structures by transabdominal scanning. COMPARISON: [facility], CT, CT CHEST ABD PEL W CON, 07/09/2020, 12:56. [facility], US, PELVIC COMPLETE, 02/18/2016, 12:29. FINDINGS: Transabdominal scanning: Limited scanning through the kidneys shows no hydronephrosis. No pathologic free abdominal or pelvic fluid. Endovaginal scanning: Uterus: Uterus is mildly enlarged in size at 10.7 x 6 x 6.1 cm. The endometrium measures 11 mm in combined thickness. Ovaries: The right ovary has been removed. The left ovary measures 6.6 x 6.6 x 6.4 cm. There is a left ovarian mass that measures 8.1 x 3.7 x 7.4 cm, with cystic and solid elements. IMPRESSION: Enlarging left ovarian mass, with cystic and solid elements. Although not pathognomonic, neoplasm is suspected. Gynecology consultation is recommended. Dictated by: Jose Reid M.D. on 07/15/2020 at 10:27 Approved by: Jose Reid M.D. on 07/15/2020 at 10:30
== END ==
PROVIDERS: Family Provider Family Medicine; PCP Family Medicine; Referring Provider Internal Medicine; Visit Provider Internal Medicine
DX: N83.8 Other noninflammatory disorders of ovary, fallopian tube and broad ligament (principal); C50.919 Malignant neoplasm of unspecified site of unspecified female breast
CPT/HCPCS: 76830; 76856

== ENCOUNTER → 2020-09-22 11:17 | Outpatient (ROUT) | payer OTHER, SELFPAY ==
[2018-11-12 14:38] VITALS: BMI 27.6
[2020-09-22 11:53] LABS: COVID19 -Nasal RAPID Negative (Negative)
== END ==
PROVIDERS: Family Provider Family Medicine; PCP Family Medicine; Visit Provider Family Medicine
DX: Z20.822 Contact with and (suspected) exposure to COVID-19 (principal)
CPT/HCPCS: 87635

== ENCOUNTER → 2021-05-03 12:20 | Outpatient (ROUT) | payer OTHER, SELFPAY ==
[2018-11-12 14:38] VITALS: BMI 27.6
[2021-05-03 14:21] LABS: COVID19 -Nasal RAPID Negative (Negative)
== END ==
PROVIDERS: Family Provider Family Medicine; PCP Family Medicine; Visit Provider Family Medicine
DX: Z20.822 Contact with and (suspected) exposure to COVID-19 (principal)
CPT/HCPCS: 87635

== ENCOUNTER → 2023-05-02 07:00 | Outpatient (CLI) | payer OTHER, SELFPAY ==
[2018-11-12 14:38] VITALS: BMI 27.6
[2023-05-02 07:52] LABS: Appearance Urine UA SL CLOUDY; Bilirubin Urine UA 1+ (NEGATIVE); Color Urine UA YELLOW; Glucose Urine UA NEGATIVE (Negative); Ketones Urine UA TRACE (NEGATIVE); Leukocyte Esterase Urine UA TRACE (NEGATIVE); Nitrite Urine UA NEGATIVE (Negative); Occult Blood Urine UA NEGATIVE (Negative); Protein Urine UA TRACE (Negative); Specific Gravity Urine UA >=1.030 (1.000-1.035)
[2023-05-02 08:07] LABS: Add Manual Diff / Slide Review NO; Basophils Absolute Auto 100 /uL (0-100); Basophils Percent Auto 1.2 % (0-2); Eosinophils Absolute Auto 300 /uL (0-450); Eosinophils Percent Auto 5.5 % (2-4); Hematocrit 42.1 % (36-46); Hemoglobin 14.6 g/dL (12.0-16.0); Lymphocytes Absolute Auto 1800 /uL (1100-4500); Mean Corpuscular HGB Conc 34.8 % (30-36); Mean Corpuscular Hemoglobin 33.6 PG (26-34); Mean Corpuscular Volume 96.7 fL (80-100); Monocytes Absolute Auto 400 /uL (0-900); Monocytes Percent Auto 8.9 % (3-14); Neutrophils Absolute Auto 2200 /uL (1500-7000); Neutrophils Percent Auto 46.4 % (50-75); Platelet Count 305 X10^3/uL (150-400); Red Blood Cell Count 4.35 X10^6/uL (4.0-5.2); Red Cell Distribution Width 12.3 % (11.6-14.8); White Blood Cell Count 4.7 X10^3/uL (4.5-11.0)
[2023-05-02 08:21] LABS: pH Urine UA 5.5 (4.5-8.0)
[2023-05-02 08:22] LABS: Bacteria Urine Many (>30); Culture Indicated Urine Specimen Cultured; Ictotest Urine Negative (Negative); RBC Urine None Seen (0-5/HPF); Squamous Epithelial Cell Urine 10-30 /HPF (0-5/HPF); WBC Urine 5-10/HPF (0-5/HPF)
[2023-05-02 08:52] LABS: BUN Creatinine Ratio 14.7 (6-22); Blood Urea Nitrogen 10 mg/dL (7-17); Calcium 9.7 mg/dL (8.4-10.2); Carbon Dioxide 23 mmol/L (22-32); Chloride 105 mmol/L (98-107); Estimated Glomerular Filt Rate > 60 mL/min (>60); Glucose 84 mg/dL (70-100); HEMOLYSIS < 15 (0-50); Potassium 4.2 mmol/L (3.4-5.1); Sodium 139 mmol/L (137-145)
== END ==
PROVIDERS: Family Provider Family Medicine; PCP Family Medicine; Referring Provider Physician Assistant; Visit Provider Physician Assistant
DX: Z01.812 Encounter for preprocedural laboratory examination (principal); Z01.810 Encounter for preprocedural cardiovascular examination; Z90.13 Acquired absence of bilateral breasts and nipples; Z80.3 Family history of malignant neoplasm of breast; Z42.1 Encounter for breast reconstruction following mastectomy; L90.5 Scar conditions and fibrosis of skin; Z85.3 Personal history of malignant neoplasm of breast
CPT/HCPCS: 36415; 80048; 81001; 85025; 87086; 93005

== ENCOUNTER → 2023-11-01 06:55 | Outpatient (CLI) | payer OTHER, SELFPAY ==
[2018-11-12 14:38] VITALS: BMI 27.6
[2023-11-01 08:36] LABS: Add Manual Diff / Slide Review NO; Basophils Absolute Auto 0 /uL (0-100); Basophils Percent Auto 0.7 % (0-2); Eosinophils Absolute Auto 100 /uL (0-450); Eosinophils Percent Auto 4.5 % (2-4); Hematocrit 39.5 % (36-46); Hemoglobin 13.5 g/dL (12.0-16.0); Lymphocytes Absolute Auto 1300 /uL (1100-4500); Lymphocytes Percent Auto 40.7 % (25-40); Mean Corpuscular HGB Conc 34.2 % (30-36); Mean Corpuscular Hemoglobin 32.9 PG (26-34); Mean Corpuscular Volume 96.2 fL (80-100); Monocytes Absolute Auto 400 /uL (0-900); Monocytes Percent Auto 11.8 % (3-14); Neutrophils Absolute Auto 1300 /uL (1500-7000); Neutrophils Percent Auto 42.3 % (50-75); Platelet Count 256 X10^3/uL (150-400); Red Cell Distribution Width 12.8 % (11.6-14.8); White Blood Cell Count 3.2 X10^3/uL (4.5-11.0)
[2023-11-01 09:18] LABS: BUN Creatinine Ratio 17.1 (6-22); Blood Urea Nitrogen 12 mg/dL (7-17); Calcium 9.5 mg/dL (8.4-10.2); Carbon Dioxide 27 mmol/L (22-32); Chloride 105 mmol/L (98-107); Estimated Glomerular Filt Rate > 60 mL/min (>60); Glucose 80 mg/dL (70-100); HEMOLYSIS < 15 (0-50); Potassium 4.3 mmol/L (3.4-5.1); Sodium 139 mmol/L (137-145)
[2023-11-01 10:31] LABS: Appearance Urine UA CLEAR; Bilirubin Urine UA 1+ (NEGATIVE); Color Urine UA ORANGE; Glucose Urine UA NEGATIVE (Negative); Ketones Urine UA 1+ (NEGATIVE); Leukocyte Esterase Urine UA NEGATIVE (NEGATIVE); Nitrite Urine UA NEGATIVE (Negative); Occult Blood Urine UA NEGATIVE (Negative); Protein Urine UA TRACE (Negative); Specific Gravity Urine UA 1.025 (1.000-1.035)
[2023-11-01 10:39] LABS: Ictotest Urine Negative (Negative)
[2023-11-01 10:45] LABS: Bacteria Urine None Seen; RBC Urine None Seen (0-5/HPF); Squamous Epithelial Cell Urine 5-10 /HPF (0-5/HPF); Urine Volume 10mL (spun); WBC Urine None Seen (0-5/HPF)
[2023-11-01 10:46] LABS: Culture Indicated Urine Cult Not Indicated; Mucus Urine 1+ (Negative)
== END ==
PROVIDERS: Family Provider Family Medicine; Referring Provider Physician Assistant; Visit Provider Physician Assistant
DX: Z01.812 Encounter for preprocedural laboratory examination (principal); Z01.810 Encounter for preprocedural cardiovascular examination; Z85.3 Personal history of malignant neoplasm of breast; Z90.13 Acquired absence of bilateral breasts and nipples; Z80.3 Family history of malignant neoplasm of breast; Z42.1 Encounter for breast reconstruction following mastectomy; Z15.01 Genetic susceptibility to malignant neoplasm of breast
CPT/HCPCS: 36415; 80048; 81001; 85025; 93005; 93010